=== PATIENT | female | born 1955 | race Caucasian/White ===

== ENCOUNTER 2017-01-20 12:38 | Inpatient (IN) | payer MEDICAID ==
[2017-01-20] MEDS ORDERED: HumuLIN R SUBCUT PRN (12:44)
--- NOTE | 2017-01-20 12:49 | DR.H&P ---
H&P - History & Physical for Day of: H&P Date: 01/20/17 - Chief Complaint Chief Complaint: decreased urine output, swelling to upper and lower extremities , complaints of pain all over - Allergies Allergies/Adverse Reactions: Allergies Allergy/AdvReac Type Severity Reaction Status Date / Time Baclofen [Baclofen] Allergy Verified 08/06/15 12:49 - History of Present Illness History of Present Illness: patient is a 61-year-old white female who has a history of chronic renal insufficiency under the care of dyer and washer. Patient is predialysis. Patient has had gradual decrease in kidney function over the last several weeks. Patient's CMP within the last 24 hours revealed hyperkalemia as well as increased BUN/creatinine above baseline. Patient is a resident [facility] nurses report patient has had significant increase in overall edema face upper and lower extremities as well as abdominal distention. Patient complains of pain all over. We plan to admit this patient for further evaluation. Very gentle slow IV hydration, strict I's and O's will give a mild diuretic admission labs including cardiac panel urinalysis and a chest x-ray. - Past Medical History Past Medical History: CVA, Diabetes - Past Surgical History Surgical History: Hysterectomy - Family History Family Medical History: Diabetes Mellitus, Coronary Artery Disease, Sudden Cardiac , Hypertension - Social History Does patient currently use any type of tobacco product: No Have you used tobacco products in the last 12 months: No Type of Tobacco Use: None Does any household member use tobacco: No Alcohol Use: None Drug Use: None - Review of Systems Constitutional: Weakness Eyes: No Symptoms Reported ENT: No Symptoms Reported Respiratory: Shortness of Breath Cardiovascular: Edema Gastrointestinal: No Symptoms Reported Genitourinary: Retention Musculoskeletal: Other (pain all over) Skin: No Symptoms Reported Neurological: Weakness - Physical Exam Vital Signs: Blood Pressure [Right Arm] 148/68 Blood Pressure [Left Arm] 109/55 Blood Pressure 195/88 Oriented: Normal Eyes: Normal Ear: Normal Nose: Normal Throat: Normal Respiratory: Diminished Throughout Cardiovascular: Normal, Edema : Normal Auscultation: Bowel Sounds: Normal Palpation: Normal Tenderness: Normal Skin: Normal Musculoskeletal: Right, Left, Thigh, Back:Lumbar, Swelling Affect: Anxious Speech Pattern: Clear, Appropriate - Assessment/Plan (1) Acute on chronic renal failure Status: Acute Plan: admit, admission labs, mota cath, strict I & Os, cardiac monitoring. chest xray on admission, gentle iv hydration, lasix 20mg iv x2 dose. restart bp medication. correct electrolyte imbalance (2) Hyperkalemia Status: Acute (3) DM (diabetes mellitus), type 2 Status: Acute
[2017-01-20] MEDS ORDERED: NS 1000 ML 1,000 ML IV SCH ×2 (13:00→20:31)
[2017-01-20] MEDS: KAYEXALATE PO SCH ×3 (14:45→21:50)
[2017-01-20 14:47] LABS: ALBUMIN 2.9 g/dL (3.4-5.0); BILIRUBIN,DIRECT 0.08 mg/dL (0-0.2); CKMB % 12.1 % (<4); TOTAL PROTEIN 6.7 g/dL (6.4-8.2); TROPONIN I 1.14 ng/mL (0-1.5)
[2017-01-20 14:55] LABS: CREATINE KINASE MB 57.7 ng/mL (0-4.0)
--- NOTE | 2017-01-20 17:39 | RAD ---
HISTORY: Shortness of breath, CHF Study: PA and lateral views of the chest Comparison: 08/24/2015 Findings: Single upright portable view is submitted. The lungs are clear without consolidation, effusion or pne umothorax. The cardiac and mediastinal contours are within normal limits. Multiple surgical clips ar e noted in the right neck. IMPRESSION: 1. No acute cardiopulmonary abnormality. Reported By:
[2017-01-20 17:46] LABS: BILIRUBIN,URINE NEGATIVE (NEGATIVE); BLOOD/HEMOGLOBIN,URINE 3+ (NEGATIVE); GLUCOSE, URINE NEGATIVE (NEGATIVE); KETONES,URINE NEGATIVE (NEGATIVE); LEUKOCYTE ESTERASE ,URINE 3+ (NEGATIVE); NITRITES,URINE NEGATIVE (NEGATIVE); PROTEIN,URINE 3+ (NEGATIVE); UROBILINOGEN,URINE NORMAL (NORMAL)
[2017-01-20 18:02] LABS: APPEARANCE,URINE CLOUDY (CLEAR); BACTERIA,URINE 2+ /HPF (NEGATIVE); COLOR,URINE YELLOW (YELLOW); SQUAMOUS EPITHELIAL CELL,UR MODERATE /HPF (NEGATIVE)
[2017-01-20 18:03] LABS: AMORPHOUS SEDIMENT,UR 1+ /HPF (NEGATIVE)
[2017-01-20 18:17] VITALS: BMI 29.3
[2017-01-20] MEDS ORDERED: MORPHINE SULFATE INJ 2 MG INJ IVP PRN (18:54)
[2017-01-20 19:32] LABS: BASOPHILS # (AUTO) 0.1 X10^3/uL (0.0-0.1); BASOPHILS % (AUTO) 0.6 % (0.2-1.0); EOSINOPHILS % (AUTO) 0.1 % (0.9-2.9); HEMATOCRIT 27.1 % (36.0-47.0); HEMOGLOBIN 8.9 g/dL (12.0-16.0); LYMPHOCYTES # (AUTO) 0.6 X10^3/uL (1.3-2.9); LYMPHOCYTES % (AUTO) 7.3 % (21.0-51.0); MEAN CORPUSCULAR HEMOGLOBIN 28.8 pg (27.0-34.0); MEAN CORPUSCULAR VOLUME 87.5 fL (80.0-100.0); MEAN PLATELET VOLUME 9.4 fL (7.4-11.0); MONOCYTES # (AUTO) 0.3 x10^3/uL (0.3-0.8); MONOCYTES % (AUTO) 3.3 % (0.0-13.0); NEUTROPHILS # (AUTO) 7.6 x10^3/uL (2.2-4.8); NEUTROPHILS % (AUTO) 88.7 % (42.0-75.0); PLATELET COUNT 264 X10^3/uL (150.0-450.0); RED CELL DISTRIBUTION WIDTH 14.6 % (11.6-16.5); WHITE BLOOD COUNT 8.5 X10^3/uL (3.6-10.0)
[2017-01-20] MEDS ORDERED: ZOFRAN INJ 4 MG VIAL IVP PRN (19:33)
[2017-01-20 19:44] LABS: ALANINE AMINOTRANSFERASE 11 Units/L (12-78); ALBUMIN 2.7 g/dL (3.4-5.0); ALKALINE PHOSPHATASE 105 Units/L (46-116); ASPARTATE AMINO TRANSFERASE 43 Units/L (15-37); BLOOD UREA NITROGEN > 150 mg/dL (7-18); CALCIUM 8.6 mg/dL (8.5-10.1); CHLORIDE 105 mmol/L (98-107); COR CA(FOR HYPOALB) 9.6 mg/dL (8.5-10.1); CREATININE 7.35 mg/dL (0.55-1.02); SODIUM 139 mmol/L (136-145); TOTAL PROTEIN 6.6 g/dL (6.4-8.2); eGFR BLACK RACES 7 (>60); eGFR NON BLACK RACES 6 (>60)
[2017-01-20 19:46] LABS: CARBON DIOXIDE 12.8 mmol/L (21-32)
[2017-01-20] MEDS ORDERED: SNACK - Diabetic Appropriate PO SCH (20:00)
[2017-01-20] MEDS ORDERED: NORCO 10/325 TAB PO PRN (20:24)
[2017-01-20] MEDS ORDERED: ZANAFLEX PO PRN (20:24)
[2017-01-20] MEDS ORDERED: D50W ABBOJECT SYR IV ONE (20:24)
[2017-01-20] MEDS ORDERED: VISTARIL PO PRN (20:24)
[2017-01-20] MEDS ORDERED: HumuLIN R SUBCUT ONE (20:30)
[2017-01-20] MEDS ORDERED: NIASPAN ER TAB 500 MG PO SCH (21:00)
[2017-01-20] MEDS ORDERED: LASIX IVP SCH (21:00)
[2017-01-20] MEDS: SODIUM BICARBONATE TAB 650MG PO SCH (21:49)
[2017-01-20] MEDS: BUSPAR PO SCH (22:11)
[2017-01-20] MEDS: APRESOLINE TAB 25 MG PO SCH (22:45)
[2017-01-20] MEDS: LASIX IVP SCH (22:56)
[2017-01-21 02:11] LABS: BASOPHILS % (AUTO) 0.6 % (0.2-1.0); EOSINOPHILS % (AUTO) 0.1 % (0.9-2.9); HEMATOCRIT 27.3 % (36.0-47.0); HEMOGLOBIN 8.8 g/dL (12.0-16.0); LYMPHOCYTES # (AUTO) 0.4 X10^3/uL (1.3-2.9); LYMPHOCYTES % (AUTO) 5.5 % (21.0-51.0); MEAN CORPUSCULAR HEMOGLOBIN 28.6 pg (27.0-34.0); MEAN CORPUSCULAR HGB CONC 32.4 g/dL (33.0-35.0); MEAN CORPUSCULAR VOLUME 88.3 fL (80.0-100.0); MEAN PLATELET VOLUME 9.1 fL (7.4-11.0); MONOCYTES # (AUTO) 0.5 x10^3/uL (0.3-0.8); MONOCYTES % (AUTO) 6.9 % (0.0-13.0); NEUTROPHILS # (AUTO) 6.1 x10^3/uL (2.2-4.8); NEUTROPHILS % (AUTO) 86.9 % (42.0-75.0); PLATELET COUNT 240 X10^3/uL (150.0-450.0); RED BLOOD COUNT 3.09 X10^6/uL (3.5-5.4); RED CELL DISTRIBUTION WIDTH 14.6 % (11.6-16.5); WHITE BLOOD COUNT 7.1 X10^3/uL (3.6-10.0)
[2017-01-21 02:22] LABS: ALANINE AMINOTRANSFERASE 12 Units/L (12-78); ALBUMIN 2.7 g/dL (3.4-5.0); ALKALINE PHOSPHATASE 109 Units/L (46-116); ASPARTATE AMINO TRANSFERASE 48 Units/L (15-37); CALCIUM 8.3 mg/dL (8.5-10.1); CHLORIDE 108 mmol/L (98-107); COR CA(FOR HYPOALB) 9.3 mg/dL (8.5-10.1); CREATININE 7.45 mg/dL (0.55-1.02); SODIUM 141 mmol/L (136-145); TOTAL PROTEIN 6.5 g/dL (6.4-8.2); eGFR BLACK RACES 7 (>60); eGFR NON BLACK RACES 6 (>60)
[2017-01-21 02:24] LABS: BLOOD UREA NITROGEN 183 mg/dL (7-18)
[2017-01-21] MEDS: KAYEXALATE PO SCH ×4 (03:13→10:40)
[2017-01-21 03:48] LABS: CARBON DIOXIDE 12.8 mmol/L (21-32)
[2017-01-21] MEDS ORDERED: D50W ABBOJECT SYR IV ONE (04:07)
[2017-01-21] MEDS: SODIUM BICARBONATE TAB 650MG PO SCH ×2 (05:50→15:17)
[2017-01-21] MEDS: LASIX IVP SCH (05:51)
[2017-01-21] MEDS: APRESOLINE TAB 25 MG PO SCH ×2 (05:52→15:17)
[2017-01-21] MEDS: BUSPAR PO SCH (08:55)
[2017-01-21] MEDS ORDERED: FLONASE NASAL SPRAY ENOSTRIL SCH (09:00)
[2017-01-21] MEDS ORDERED: CELEXA PO SCH (09:00)
[2017-01-21] MEDS ORDERED: SINGULAIR TAB 10 MG PO SCH (09:00)
[2017-01-21] MEDS ORDERED: MORPHINE SULFATE INJ 2 MG INJ IVP PRN (11:30)
[2017-01-21] MEDS ORDERED: NS 1000 ML 1,000 ML IV SCH (15:00)
[2017-01-21 17:41] VITALS: BP 157/71
[2017-01-21] MEDS ORDERED: SNACK - Diabetic Appropriate PO SCH (20:00)
== END 2017-01-21 15:30 | disposition short-term general hospital (02) | DRG 683 ==
LOC: MED/SURG 12:38 → UNDOADMIN 12:38 → MED/SURG 15:22
PROVIDERS: ADMIT Internal Medicine; ATTEND Internal Medicine
DX: N17.9 Acute kidney failure, unspecified (principal); E87.2 Acidosis; N18.9 Chronic kidney disease, unspecified; E87.5 Hyperkalemia; E11.9 Type 2 diabetes mellitus without complications; B96.20 Unspecified Escherichia coli [E. coli] as the cause of diseases classified elsewhere
CPT/HCPCS: 36415; 71020; 80053; 80076; 81001; 82550; 82553; 82947; 84484; 85025; 87086; 87088; 87186; 93005; 93010; 99238; A4222; Q0177; J1815; J1940; J2270; J2405; J3490